=== PATIENT | female | born 1970 | race Two or more races ===

== ENCOUNTER 2017-10-12 15:25 | Inpatient (IN) | payer OTHER ==
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
[2017-10-12 17:23] VITALS: BMI 60.1
[2017-10-12] MEDS ORDERED: IBUPROFEN 400 MG TABLET (FP) PO PRN (17:23)
[2017-10-12] MEDS ORDERED: guaiFENesin/D-METHORPHAN HB 10 ML UNIT-DOSE CUPS PO PRN (17:23)
[2017-10-12] MEDS ORDERED: hydrOXYzine PAMOATE 50 MG CAPSULE (FP) PO PRN (17:23)
[2017-10-12] MEDS ORDERED: MENTHOL/PHENOL 1 EACH UD MM PRN (17:23)
[2017-10-12] MEDS ORDERED: MAGNESIUM CITRATE 300 ML BOTTLE PO PRN (17:23)
[2017-10-12] MEDS ORDERED: MAGNESIUM HYDROX 2400MG/30ML ORAL SUSPENSION 30 ML CUP PO PRN (17:23)
[2017-10-12] MEDS ORDERED: P-EPHED 60MG/TRIPROLIDI 2.5MG TABLET PO PRN (17:23)
[2017-10-12] MEDS ORDERED: ACETAMINOPHEN 325 MG TABLET (FP) PO PRN (17:23)
[2017-10-12] MEDS ORDERED: LOPERAMIDE HCL 2 MG CAPSULE PO PRN (17:23)
[2017-10-12] MEDS ORDERED: NICOTINE POLACRILEX 2 MG GUM BC PRN (17:23)
[2017-10-12] MEDS ORDERED: TUBERCULIN PPD 5 TU/0.1ML VIAL ID ONE (19:55)
[2017-10-12] MEDS: NAPROXEN 500 MG TABLET (FP) PO SCH (21:29)
[2017-10-12] MEDS: THIAMINE HCL 100 MG TABLET (FP) PO SCH (21:29)
[2017-10-12] MEDS: NICOTINE 14 MG/24 HOURS TOPICAL PATCH TD SCH (21:31)
[2017-10-13] MEDS: NICOTINE 14 MG/24 HOURS TOPICAL PATCH TD SCH (10:21)
[2017-10-13] MEDS: PRENATAL VITAMINS W/ FOLIC ACID TABLET (FP) PO SCH (10:21)
[2017-10-13] MEDS: ASPIRIN 81 MG CHEWABLE TABLETS PO SCH (10:21)
[2017-10-13] MEDS: GABAPENTIN 100 MG CAPSULE (FP) PO SCH (10:22)
[2017-10-13] MEDS: NAPROXEN 500 MG TABLET (FP) PO SCH ×2 (10:22→21:49)
[2017-10-13 10:31] LABS: HEMATOCRIT 36.8 % (32.4-45.2); MCH 29.5 pg (25.7-33.7); MCHC 32.7 g/dl (32.0-36.0); MEAN PLT VOLUME 9.3 fl (7.5-11.1); PLATELET COUNT 175 K/MM3 (134-434); RBC 4.08 M/mm3 (3.60-5.2); RDW 13.6 % (11.6-15.6); WHITE BLOOD COUNT 4.8 K/mm3 (4.0-10.0)
[2017-10-13 10:35] LABS: ALBUMIN 3.3 g/dl (3.4-5.0); ANION GAP 6 (8-16); BLOOD UREA NITROGEN 14 mg/dL (7-18); CALCIUM 8.6 mg/dL (8.5-10.1); CHLORIDE 107 mmol/L (98-107); CO2 27 mmol/L (21-32); CREATININE 0.7 mg/dL (0.55-1.02); GLUCOSE,RANDOM 88 mg/dL (74-106); POTASSIUM 4.4 mmol/L (3.5-5.1); SGOT/AST 19 U/L (15-37); SODIUM 140 mmol/L (136-145)
[2017-10-13 10:40] LABS: ALK PHOS 62 U/L (45-117); BILIRUBIN,TOTAL 0.3 mg/dL (0.2-1.0); SGPT/ALT 28 U/L (12-78); TOT PROT 6.5 g/dl (6.4-8.2)
[2017-10-13] MEDS ORDERED: PNEUMOCOCCAL 23 VACCINE 0.5 ML VIAL IM ONE (12:00)
[2017-10-13] MEDS ORDERED: PNEUMOC 13-VAL CONJ-DIP CRM/PF 0.5 ML DISP.SYRIN IM ONE (12:00)
--- NOTE | 2017-10-13 12:49 | EKG ---
Test Reason : Blood Pressure : / mmHG Vent. Rate : 069 BPM Atrial Rate : 069 BPM P-R Int : 150 ms QRS Dur : 100 ms QT Int : 384 ms P-R-T Axes : 060 035 035 degrees QTc Int : 411 ms NORMAL SINUS RHYTHM NORMAL ECG NO PREVIOUS ECGS AVAILABLE Confirmed by Luis Cason ([id number]) on 10/13/2017 12:49:09 PM Referred By: Confirmed By:Luis Cason
--- NOTE | 2017-10-13 18:17 | PN ---
[facility] Progress Note Note: Pt. was cleared by [facility] for admission to rehab, She was transported by Ulisses Jerry of our outreach staff.
[2017-10-13] MEDS: THIAMINE HCL 100 MG TABLET (FP) PO SCH (21:49)
[2017-10-13] MEDS ORDERED: ALBUTEROL SO4 2.5/IPRATROPIUM 0.5 INH SOL 3 ML VIAL.NEB. NEB PRN (23:20)
[2017-10-14] MEDS: NICOTINE 14 MG/24 HOURS TOPICAL PATCH TD SCH (09:12)
[2017-10-14] MEDS: GABAPENTIN 100 MG CAPSULE (FP) PO SCH (09:12)
[2017-10-14] MEDS: PRENATAL VITAMINS W/ FOLIC ACID TABLET (FP) PO SCH (09:12)
[2017-10-14] MEDS: NAPROXEN 500 MG TABLET (FP) PO SCH ×2 (09:12→21:54)
[2017-10-14] MEDS: ASPIRIN 81 MG CHEWABLE TABLETS PO SCH (09:12)
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
[2017-10-14] MEDS: GABAPENTIN 300 MG CAPSULE (FP) PO SCH ×2 (15:13→21:54)
[2017-10-14 17:47] LABS: URINE APPEARANCE CLEAR; URINE BILIRUBIN NEGATIVE (NEGATIVE); URINE BLOOD NEGATIVE (NEGATIVE); URINE COLOR STRAW; URINE GLUCOSE (UA) NEGATIVE (NEGATIVE); URINE KETONE NEGATIVE (NEGATIVE); URINE LEUK ESTERASE NEGATIVE (NEGATIVE); URINE NITRITE NEGATIVE (NEGATIVE); URINE PROTEIN NEGATIVE (NEGATIVE); URINE UROBILINOGEN NEGATIVE mg/dL (0.2-1.0)
[2017-10-14] MEDS: MAG HYDROX/AL HYDROX/SIMETH 30 ML UNIT-DOSE CUP PO PRN (18:58)
[2017-10-14] MEDS: THIAMINE HCL 100 MG TABLET (FP) PO SCH (21:54)
[2017-10-15] MEDS: GABAPENTIN 300 MG CAPSULE (FP) PO SCH ×3 (06:31→21:30)
[2017-10-15] MEDS: ASPIRIN 81 MG CHEWABLE TABLETS PO SCH (10:32)
[2017-10-15] MEDS: PRENATAL VITAMINS W/ FOLIC ACID TABLET (FP) PO SCH (10:32)
[2017-10-15] MEDS: NICOTINE 14 MG/24 HOURS TOPICAL PATCH TD SCH (10:32)
[2017-10-15] MEDS: NAPROXEN 500 MG TABLET (FP) PO SCH ×2 (10:32→21:30)
[2017-10-15] MEDS: MAG HYDROX/AL HYDROX/SIMETH 30 ML UNIT-DOSE CUP PO PRN ×2 (13:14→20:15)
[2017-10-15] MEDS: THIAMINE HCL 100 MG TABLET (FP) PO SCH (21:30)
[2017-10-15] MEDS: diphenhydrAMINE HCL 50 MG CAPSULE PO PRN (21:31)
[2017-10-16] MEDS: GABAPENTIN 300 MG CAPSULE (FP) PO SCH ×3 (07:05→21:57)
[2017-10-16] MEDS: NAPROXEN 500 MG TABLET (FP) PO SCH ×2 (10:18→21:57)
[2017-10-16] MEDS: ASPIRIN 81 MG CHEWABLE TABLETS PO SCH (10:18)
[2017-10-16] MEDS: PRENATAL VITAMINS W/ FOLIC ACID TABLET (FP) PO SCH (10:18)
[2017-10-16] MEDS: NICOTINE 14 MG/24 HOURS TOPICAL PATCH TD SCH (10:18)
[2017-10-16] MEDS: MAG HYDROX/AL HYDROX/SIMETH 30 ML UNIT-DOSE CUP PO PRN (10:22)
[2017-10-16] MEDS: OLANZapine 2.5 MG TABLET PO SCH (16:16)
[2017-10-16] MEDS ORDERED: PANTOPRAZOLE 40 MG TABLET (FP) PO ONE (16:30)
[2017-10-16] MEDS: THIAMINE HCL 100 MG TABLET (FP) PO SCH (21:57)
[2017-10-16] MEDS: diphenhydrAMINE HCL 50 MG CAPSULE PO PRN (21:59)
[2017-10-17] MEDS: GABAPENTIN 300 MG CAPSULE (FP) PO SCH (06:43)
[2017-10-17 07:13] VITALS: TEMP 97.7
[2017-10-17 09:19] VITALS: BP 113/74; PULSE 106
[2017-10-17] MEDS ORDERED: PANTOPRAZOLE 40 MG TABLET (FP) PO SCH (10:00)
[2017-10-17] MEDS: NICOTINE 14 MG/24 HOURS TOPICAL PATCH TD SCH (10:34)
[2017-10-17] MEDS: ASPIRIN 81 MG CHEWABLE TABLETS PO SCH (10:34)
[2017-10-17] MEDS: PRENATAL VITAMINS W/ FOLIC ACID TABLET (FP) PO SCH (10:34)
[2017-10-17] MEDS: NAPROXEN 500 MG TABLET (FP) PO SCH (10:34)
[2017-10-17] MEDS: OLANZapine 2.5 MG TABLET PO SCH (10:34)
--- NOTE | 2017-10-17 13:21 | PN ---
Psychiatric Progress Note Vital Signs: Vital Signs Period Temp Pulse Resp BP Sys/Woodard Pulse Ox Last 24 Hr 97.7 F 75-106 16-18 113-119/60-74 Date of Session: 10/17/17 Chief Complaint:: discharge HPI: Patient is a 47 year old fenale with history of alcohol dependence, alcohol induced mood disodrder and PTSD. ROS: wnl Current Medications: Active Medications Generic Name Dose Route Start Last Admin Trade Name Freq PRN Reason Stop Dose Admin Acetaminophen 650 mg 10/12/17 17:23 10/14/17 07:38 Tylenol - PO 650 mg Q4H PRN Administration FEVER Al Hydroxide/Mg Hydroxide 30 ml 10/12/17 17:23 10/16/17 10:22 Mylanta Oral Suspension - PO 30 ml Q6H PRN Administration DYSPEPSIA Albuterol/Ipratropium 1 amp 10/13/17 23:20 10/14/17 09:13 Duoneb - NEB 1 amp Q4H PRN Administration SHORTNESS OF BREATH Aspirin 81 mg 10/13/17 10:00 10/17/17 10:34 Asa - PO 81 mg DAILY VERONICA Administration Diphenhydramine HCl 50 mg 10/14/17 09:45 10/16/17 21:59 Benadryl - PO 50 mg HS PRN Administration INSOMNIA Eucalyptus/Menthol/Phenol/Sorbitol 1 each 10/12/17 17:23 Cepastat Lozenge - MM Q4H PRN SORE THROAT Gabapentin 300 mg 10/14/17 14:45 10/17/17 06:43 Neurontin - PO 300 mg TID VERONICA Administration Guaifenesin 10 ml 10/12/17 17:23 Robitussin Dm - PO Q6H PRN COUGH Hydroxyzine Pamoate 50 mg 10/12/17 17:23 10/17/17 06:45 Vistaril - PO 50 mg Q4H PRN Administration AGITATION Ibuprofen 400 mg 10/12/17 17:23 Motrin - PO Q6H PRN Pain level 4-6 Loperamide HCl 4 mg 10/12/17 17:23 Imodium - PO Q6H PRN DIARRHEA Magnesium Citrate 300 ml 10/12/17 17:23 Citroma - PO Q48H PRN CONSTIPATION Magnesium Hydroxide 30 ml 10/12/17 17:23 Milk Of Magnesia - PO DAILY PRN CONSTIPATION Naproxen 500 mg 10/12/17 22:00 10/17/17 10:34 Naprosyn - PO 500 mg BID VERONICA Administration Nicotine 14 mg 10/12/17 17:30 10/17/17 10:34 Nicoderm Patch - TD 14 mg DAILY VERONICA Administration Nicotine Polacrilex 2 mg 10/12/17 17:23 Nicorette Gum - BC Q2H PRN NICOTINE REPLACEMENT RX Olanzapine 2.5 mg 10/16/17 16:00 10/17/17 10:34 Zyprexa - PO Not Given DAILY VERONICA Pantoprazole Sodium 40 mg 10/17/17 10:00 10/17/17 10:34 Protonix - PO 40 mg DAILY VERONICA Administration Multivit/Folic Acid/Iron 1 tab 10/13/17 10:00 10/17/17 10:34 Vitamins (Sjr) - PO 1 tab DAILY VERONICA Administration Pseudoephedrine/Triprolidine 1 combo 10/12/17 17:23 Actifed - PO TID PRN NASAL CONGESTION Thiamine HCl 100 mg 10/12/17 22:00 10/16/17 21:57 Vitamin B1 - PO 100 mg HS VERONICA Administration Current Side Effect: No Lab tests ordered: No Lab tests reviewed: Yes Provider note:: Was called by the medical staff from to give pt administrative discharge as was decided by multidsciplinary team due to having verbal altercation and threatening the other patient, security was called to the floor. Patient was seen, she is calm, alert and coopertive. Scripts for Medications was provided. Stable for discharge Total face to face time:: 25 Mental Status Exam - Mental Status Exam Alert and Oriented to: Time, Place, Person Cognitive Function: Good Patient Appearance: Well Groomed Mood: Sad Affect: Mood Congruent Patient Behavior: Cooperative Speech Pattern: Clear Voice Loudness: Normal Thought Process: Goal Oriented Thought Disorder: Not Present Hallucinations: None Suicidal Ideation: Denies Homicidal Ideation: Denies Insight/Judgement: Fair Sleep: Fair Appetite: Good Muscle strength/Tone: Normal Gait/Station: Normal
== END 2017-10-17 13:35 | disposition home or self-care (01) | DRG 772 ==
LOC: YASAS 15:25 → Y3E 18:03
PROVIDERS: ADMIT Psychiatry & Neurology Psychiatry; ATTEND Psychiatry & Neurology Psychiatry
PROC: HZ42ZZZ Group Counseling for Substance Abuse Treatment, Cognitive-Behavioral (ICD-10-PCS; principal; 2017-10-12)
DX: F10.24 Alcohol dependence with alcohol-induced mood disorder (principal); F17.210 Nicotine dependence, cigarettes, uncomplicated; F43.10 Post-traumatic stress disorder, unspecified; F91.8 Other conduct disorders; I10 Essential (primary) hypertension; E78.5 Hyperlipidemia, unspecified; J45.909 Unspecified asthma, uncomplicated; Z86.73 Personal history of transient ischemic attack (TIA), and cerebral infarction without residual deficits
CPT/HCPCS: 36415; 80053; 81003; 85027; 86593; 86803; 87389; 90732; 93005; 93010; 94640; G0009

== ENCOUNTER 2023-03-28 19:29 | Inpatient (IN) | payer OTHER ==
[2023-03-28 20:12] VITALS: BMI 21.9
[2023-03-28] MEDS ORDERED: P-EPHED 60MG/TRIPROLIDI 2.5MG TABLET PO PRN (21:02)
[2023-03-28] MEDS ORDERED: BENZOCAINE/MENTHOL (CHLORASEPTIC ) LOZENGE MM PRN (21:02)
[2023-03-28] MEDS ORDERED: ACETAMINOPHEN 325 MG TABLET (FP) PO PRN (21:02)
[2023-03-28] MEDS ORDERED: LOPERAMIDE HCL 2 MG CAPSULE PO PRN (21:02)
[2023-03-28] MEDS ORDERED: IBUPROFEN 400 MG TABLET (FP) PO PRN (21:02)
[2023-03-28] MEDS ORDERED: COLLOIDAL OATMEAL 1 BAR EACH TP PRN (21:02)
[2023-03-28] MEDS ORDERED: BENZONATATE 200 MG CAPSULE PO PRN (21:02)
[2023-03-28] MEDS ORDERED: MAG HYDROX/AL HYDROX/SIMETH 30 ML UNIT-DOSE CUP PO PRN (21:02)
[2023-03-28] MEDS ORDERED: guaiFENesin 600 MG TABLET.ER (FP) PO PRN (21:02)
[2023-03-28] MEDS ORDERED: MAGNESIUM HYDROX 2400MG/30ML ORAL SUSPENSION 30 ML CUP PO PRN (21:02)
[2023-03-28] MEDS ORDERED: NICOTINE 14 MG/24 HOURS TOPICAL PATCH TD PRN (21:02)
[2023-03-28] MEDS ORDERED: AMMONIUM LACTATE 12% LOTION 225 GM BOTTLE TP PRN (21:02)
[2023-03-28] MEDS ORDERED: NICOTINE POLACRILEX 2 MG GUM BUC PRN (21:02)
[2023-03-28] MEDS ORDERED: hydrOXYzine PAMOATE 25 MG CAPSULE (FP) PO PRN (21:02)
[2023-03-28] MEDS ORDERED: POLYETHYLENE GLYCOL (HEALTHYLAX) 3350 17 GM PACKET PO PRN (21:02)
[2023-03-28] MEDS ORDERED: METHOCARBAMOL 500 MG TABLET PO PRN (21:05)
[2023-03-28] MEDS ORDERED: THIAMINE HCL 100 MG TABLET (FP) PO SCH (22:00)
[2023-03-28] MEDS ORDERED: MELATONIN 5 MG TABLETS PO SCH (22:00)
[2023-03-28] MEDS ORDERED: TUBERCULIN PPD 5 TU/0.1ML SYRINGE (IN PATIENT USE ONLY) ID ONE (23:00)
[2023-03-29] MEDS ORDERED: TUBERCULIN PPD 5 TU/0.1ML VIAL ID ONE (00:25)
[2023-03-29] MEDS: IBUPROFEN 600 MG TABLET (FP) PO PRN ×2 (00:28→10:00)
[2023-03-29 01:00] VITALS: BP 125/83; PULSE 97; RESP 18; TEMP 96.8
[2023-03-29 09:46] LABS: HEMATOCRIT 37.9 % (32.4-45.2); HEMOGLOBIN 12.8 GM/dL (10.7-15.3); MCH 28.9 pg (25.7-33.7); MCHC 33.7 g/dl (32.0-36.0); MEAN CELL VOLUME 85.6 fl (80-96); MEAN PLT VOLUME 8.4 fl (7.5-11.1); PLATELET COUNT 178 10^3/uL (134-434); RBC 4.43 M/mm3 (3.60-5.2); RDW 16.2 % (11.6-15.6); WHITE BLOOD COUNT 5.1 K/mm3 (4.0-10.0)
[2023-03-29 09:49] LABS: POTASSIUM 4.4 mmol/L (3.5-5.1)
[2023-03-29] MEDS ORDERED: PRENATAL VITAMINS W/ FOLIC ACID TABLET (FP) PO SCH (10:00)
[2023-03-29 10:01] LABS: ALBUMIN 2.9 g/dl (3.4-5.0)
[2023-03-29 10:04] LABS: CREATININE 0.6 mg/dL (0.55-1.3)
[2023-03-29 10:05] LABS: BILIRUBIN,TOTAL 0.4 mg/dL (0.2-1)
[2023-03-29 10:06] LABS: TOT PROT 6.3 g/dl (6.4-8.2)
[2023-03-29] MEDS ORDERED: ACETAMINOPHEN 325 MG TABLET (FP) PO PRN (10:39)
[2023-03-29 12:49] LABS: SYPHILIS W/ RPR CONF NON-REACTIVE (NONREACTIVE)
[2023-03-29 14:13] LABS: EPI CELLS >36 /uL (0-25.1); HYALINE CASTS 1 /uL (0-3.1); PH,URINE 5.5 (5.0-8.0); URINE APPEARANCE CLEAR; URINE BACTERIA 71 /uL (0-1359); URINE BILIRUBIN NEGATIVE (NEGATIVE); URINE COLOR YELLOW; URINE GLUCOSE (UA) NEGATIVE (NEGATIVE); URINE KETONE NEGATIVE (NEGATIVE); URINE LEUK ESTERASE 2+ (NEGATIVE); URINE NITRITE NEGATIVE (NEGATIVE); URINE PROTEIN NEGATIVE (NEGATIVE); URINE RBC 30 /uL (0-23.9); URINE UROBILINOGEN 0.2 mg/dL (0.2-1.0); URINE WBC 123 /uL (0-25.8)
== END 2023-03-29 11:11 | disposition left against medical advice (07) | DRG 770 ==
LOC: YASAS 19:29 → Y5N 22:26
PROVIDERS: ADMIT Allergy & Immunology; ATTEND Psychiatry & Neurology Pain Medicine
PROC: HZ42ZZZ Group Counseling for Substance Abuse Treatment, Cognitive-Behavioral (ICD-10-PCS; principal; 2023-03-28)
DX: F14.20 Cocaine dependence, uncomplicated (principal); F17.210 Nicotine dependence, cigarettes, uncomplicated; F19.24 Other psychoactive substance dependence with psychoactive substance-induced mood disorder; F60.3 Borderline personality disorder; E78.5 Hyperlipidemia, unspecified; I10 Essential (primary) hypertension; J45.909 Unspecified asthma, uncomplicated; K21.9 Gastro-esophageal reflux disease without esophagitis; Z96.641 Presence of right artificial hip joint; Z87.820 Personal history of traumatic brain injury
CPT/HCPCS: 36415; 80053; 81003; 81025; 85027; 86780; 86803; 87635

== ENCOUNTER 2023-05-06 19:39 | Inpatient (IN) | payer OTHER ==
[2023-05-06 21:25] VITALS: BMI 22.6
[2023-05-06] MEDS ORDERED: MELATONIN 5 MG TABLETS PO SCH (22:00)
[2023-05-06] MEDS ORDERED: LIDOCAINE PATCH REMOVAL MC SCH (22:00)
[2023-05-06] MEDS ORDERED: IBUPROFEN 400 MG TABLET (FP) PO PRN (22:40)
[2023-05-06] MEDS ORDERED: ACETAMINOPHEN 325 MG TABLET (FP) PO PRN (22:40)
[2023-05-06] MEDS ORDERED: COLLOIDAL OATMEAL 1 BAR EACH TP PRN (22:40)
[2023-05-06] MEDS ORDERED: P-EPHED 60MG/TRIPROLIDI 2.5MG TABLET PO PRN (22:40)
[2023-05-06] MEDS ORDERED: LOPERAMIDE HCL 2 MG CAPSULE PO PRN (22:40)
[2023-05-06] MEDS ORDERED: NICOTINE POLACRILEX 2 MG GUM BUC PRN (22:40)
[2023-05-06] MEDS ORDERED: AMMONIUM LACTATE 12% LOTION 225 GM BOTTLE TP PRN (22:40)
[2023-05-06] MEDS ORDERED: MAG HYDROX/AL HYDROX/SIMETH 30 ML UNIT-DOSE CUP PO PRN (22:40)
[2023-05-06] MEDS ORDERED: MAGNESIUM HYDROX 2400MG/30ML ORAL SUSPENSION 30 ML CUP PO PRN (22:40)
[2023-05-06] MEDS ORDERED: IBUPROFEN 600 MG TABLET (FP) PO PRN (22:40)
[2023-05-06] MEDS ORDERED: guaiFENesin 600 MG TABLET.ER (FP) PO PRN (22:40)
[2023-05-06] MEDS ORDERED: hydrOXYzine PAMOATE 25 MG CAPSULE (FP) PO PRN (22:40)
[2023-05-06] MEDS ORDERED: POLYETHYLENE GLYCOL (HEALTHYLAX) 3350 17 GM PACKET PO PRN (22:40)
[2023-05-06] MEDS ORDERED: BENZOCAINE/MENTHOL (CHLORASEPTIC ) LOZENGE MM PRN (22:40)
[2023-05-06] MEDS ORDERED: BENZONATATE 200 MG CAPSULE PO PRN (22:40)
[2023-05-07] MEDS: BUDESONIDE/FORMETEROL FUMARATE 160/4.5 mcg INHALER IH SCH ×2 (03:43→10:59)
[2023-05-07 05:28] VITALS: RESP 18
[2023-05-07] MEDS ORDERED: PRENATAL VITAMINS W/ FOLIC ACID TABLET (FP) PO SCH (10:00)
[2023-05-07] MEDS ORDERED: LIDOCAINE 5% TOPICAL PATCH TP SCH (10:00)
[2023-05-07] MEDS ORDERED: ASPIRIN 81 MG CHEWABLE TABLETS PO SCH (10:00)
[2023-05-07] MEDS ORDERED: NICOTINE 14 MG/24 HOURS TOPICAL PATCH TD SCH (10:00)
[2023-05-07 10:16] LABS: EPI CELLS >36 /uL (0-25.1); HYALINE CASTS 0 /uL (0-3.1); PH,URINE 5.5 (5.0-8.0); URINE APPEARANCE CLEAR; URINE BACTERIA 121 /uL (0-1359); URINE BILIRUBIN NEGATIVE (NEGATIVE); URINE COLOR YELLOW; URINE GLUCOSE (UA) NEGATIVE (NEGATIVE); URINE KETONE NEGATIVE (NEGATIVE); URINE LEUK ESTERASE 1+ (NEGATIVE); URINE NITRITE NEGATIVE (NEGATIVE); URINE PROTEIN NEGATIVE (NEGATIVE); URINE UROBILINOGEN 0.2 mg/dL (0.2-1.0); URINE WBC 21 /uL (0-25.8)
[2023-05-07 10:18] LABS: URINE RBC 17.9 /uL (0-23.9)
[2023-05-07 10:51] VITALS: BP 120/74; PULSE 113; TEMP 97.8
[2023-05-07 13:52] LABS: HEMATOCRIT 40.3 % (32.4-45.2); HEMOGLOBIN 13.6 GM/dL (10.7-15.3); MCH 29.3 pg (25.7-33.7); MCHC 33.8 g/dl (32.0-36.0); MEAN CELL VOLUME 86.5 fl (80-96); MEAN PLT VOLUME 8.5 fl (7.5-11.1); PLATELET COUNT 192 10^3/uL (134-434); RBC 4.66 M/mm3 (3.60-5.2); RDW 14.9 % (11.6-15.6)
[2023-05-07 14:25] LABS: POTASSIUM 4.4 mmol/L (3.5-5.1)
[2023-05-07 14:28] LABS: BLOOD UREA NITROGEN 20.2 mg/dL (7-18); CALCIUM 8.6 mg/dL (8.5-10.1)
[2023-05-07 14:29] LABS: ALBUMIN 3.2 g/dl (3.4-5.0)
[2023-05-07 14:31] LABS: CREATININE 0.6 mg/dL (0.55-1.3)
[2023-05-07 14:33] LABS: BILIRUBIN,TOTAL 0.4 mg/dL (0.2-1); TOT PROT 6.9 g/dl (6.4-8.2)
[2023-05-07 15:18] LABS: SYPHILIS W/ RPR CONF NON-REACTIVE (NONREACTIVE)
[2023-05-07] MEDS ORDERED: THIAMINE HCL 100 MG TABLET (FP) PO SCH (22:00)
== END 2023-05-07 10:45 | disposition short-term general hospital (02) | DRG 772 ==
LOC: YASAS 19:39 → Y5N 05-07 03:36
PROVIDERS: ADMIT Allergy & Immunology; ATTEND Psychiatry & Neurology Pain Medicine
PROC: HZ42ZZZ Group Counseling for Substance Abuse Treatment, Cognitive-Behavioral (ICD-10-PCS; principal; 2023-05-07)
DX: F14.20 Cocaine dependence, uncomplicated (principal); F17.210 Nicotine dependence, cigarettes, uncomplicated; F60.3 Borderline personality disorder; F22 Delusional disorders; I10 Essential (primary) hypertension; E78.5 Hyperlipidemia, unspecified; J45.909 Unspecified asthma, uncomplicated; K21.9 Gastro-esophageal reflux disease without esophagitis
CPT/HCPCS: 36415; 80053; 81003; 81025; 85027; 86780; 86803; 87635